=== PATIENT | female | born 1960 | race Caucasian/White ===

== ENCOUNTER 2018-06-13 08:29 | Day surgery (SDC) | payer MEDICARE, OTHER ==
[2018-06-13 10:18] VITALS: BMI 29.0
[2018-06-13] MEDS ORDERED: Lactated Ringer's 500 ML IV ONE (10:20)
[2018-06-13 11:05] VITALS: O2SAT 100
[2018-06-13] MEDS ORDERED: Propofol 10 mg/ml Inj (20 ML) ONE (11:43)
[2018-06-13] MEDS ORDERED: Midazolam 2 MG/2 ML VIAL ONE (11:43)
[2018-06-13 12:03] VITALS: TEMP 97
[2018-06-13 12:21] VITALS: BP 112/63; PULSE 68; RESP 16
== END 2018-06-13 12:40 | disposition home or self-care (01) ==
LOC: H.ENDO 08:29 → EDSTATUS 13:00
PROVIDERS: ATTEND Internal Medicine Gastroenterology
DX: K30 Functional dyspepsia (principal); J45.909 Unspecified asthma, uncomplicated; E66.9 Obesity, unspecified; K44.9 Diaphragmatic hernia without obstruction or gangrene; K21.0 Gastro-esophageal reflux disease with esophagitis; K31.89 Other diseases of stomach and duodenum; K29.50 Unspecified chronic gastritis without bleeding
CPT/HCPCS: 43239; 88305; J2001; J2250; J2704; J7120